=== PATIENT | male | born 1985 | race Caucasian/White ===

== ENCOUNTER 2017-09-22 09:47 | Emergency (ER) | payer OTHER ==
[~2017-09-22] VITALS: Ht 162.6 cm; Wt 67.1 kg
[2017-09-22 10:50] VITALS: BP 141/88
[2017-09-22] MEDS ORDERED: LIDOCAINE 1% (LOCAL ANESTH.) PF 5ml SDV ONE (11:36)
[2017-09-22] MEDS ORDERED: cefTRIAXone SOD 1,000 MG VL IM ONE (11:45)
== END 2017-09-22 11:57 | disposition home or self-care (01) ==
LOC: ER 09:47
DX: S60.361A Insect bite (nonvenomous) of right thumb, initial encounter (principal); Z88.2 Allergy status to sulfonamides; W57.XXXA Bitten or stung by nonvenomous insect and other nonvenomous arthropods, initial encounter; Y93.89 Activity, other specified; Y99.8 Other external cause status; Y92.89 Other specified places as the place of occurrence of the external cause
CPT/HCPCS: 96372; 99283; J0696